=== PATIENT | female | born 1950 | race Caucasian/White ===

== ENCOUNTER 2016-11-20 15:27 | Emergency (ER) | payer OTHER ==
[~2016-11-20] VITALS: Ht 162.6 cm; Wt 77.3 kg
[2016-11-20 15:37] VITALS: BP 196/95; PULSE 96; RESP 25; O2SAT 97
--- NOTE | 2016-11-20 16:23 | ED.REPORT ---
HPI-Dyspnea / Wheezing Date of Service November 20, 2016 ED Provider: Dr. Dada Cabrera M.D. A 66 year old female with a history of hypertension and recently diagnosed asthmatic bronchitis presents to the ED via EMS from Urgent Care with wheezing onset three weeks ago. Associated symptoms include cough and shortness of breath. The patient denies fever or other symptoms. Approximately five weeks ago the patient was placed on antibiotics for pneumonia, which relieved her symptoms for approximately a week. One month ago the patient was placed on Prednisone, but did not finish the prescription. Five days ago she began taking this medication again, once daily. EMS found the patient with a BP of 206/102 and an O2 sat of 90%. Nursing Notes Stated Complaint: SOB Chief Complaint: Respiratory Distress Nursing Notes Reviewed: Yes Allergies: Coded Allergies: codeine (Unverified Allergy, Mild, "real bad stomach pain", 11/20/16) oxycodone (Unverified Allergy, Mild, itching, 11/20/16) General Time Seen by MD: 16:23 Chief Complaint Wheezing Hx Obtained From: Patient Arrived By: Walk-in Sudden in Onset?: No Onset Occurred: More than a week ago... (3 weeks) Symptom Duration: Since onset Location: : None Severity: Current: No pain currently Severity: Maximum: No pain Pertinent Negative: Relieved by nothing Context Related History: Reports: Pneumonia Recent Healthcare: Recent doctor visit Similar Sx Previous: Yes Risk Factors Well's Criteria for PE Well's PE Score: 0-2 pts (low risk 3.6%) Past Medical History Past Medical History Hypertension Asthmatic bronchitis Past Surgical History None reported Smoking History Never Smoker Ambulatory Status Independent Review of Systems Constitutional: Denies: Fever Respiratory: Reports: Non-productive cough, Shortness of breath, Wheezing Complete sys rev & neg: except as marked. GI: Denies: Diarrhea, Vomiting Physical Exam Initial Vital Signs Vital Signs (First) Date Time Temp Pulse Resp B/P Pulse Ox O2 Delivery O2 Flow Rate FiO2 11/20/16 15:37 36.8 96 25 196/95 97 Nasal Cannula 4 Initial VS: Reviewed Head / Eyes: Atraumatic, Normocephalic ENT: Conjunctiva normal, No scleral icterus Skin: Warm, Dry, No cyanosis Neurologic: Alert, Oriented, Nonfocal Psychiatric: Mood/affect normal, Behavior normal, Normal thought content General/Constitutional: Awake, Alert Neck: Supple, Full range of motion Respiratory / Chest: Breath sounds = bilat Wheezing / Retractions: Positive: Wheezing expiratory (Diffuse) Tachypneic Cardiovascular: Heart rate NL, Regular rhythm, Heart sounds NL Lower Extremity / Pelvis / MS: Inspection NL, No edema Interpretation & Diagnostics Lab Results Interpretation Result Diagram: 11/20/16 1649 11/20/16 1649 Test 11/20/16 16:49 11/20/16 16:54 White Blood Count 11.1th/mm3 (3.8-10.1) Red Blood Count 5.20mil/mm3 (3.90-5.20) Hemoglobin 14.9g/dL (12.0-15.6) Hematocrit 44.4% (35.0-46.0) Mean Corpuscular Volume 85.4fL (81-100) Mean Corpuscular Hemoglobin 28.7pg (27.0-35.0) Mean Corpuscular Hemoglobin Concent 33.6% (32.0-37.0) Red Cell Distribution Width 14.6% (12.3-15.4) Platelet Count 254bil/L (150-400) Neutrophils (%) (Auto) 69.5% (40-74) Lymphocytes (%) (Auto) 23.5% (14-46) Monocytes (%) (Auto) 4.8% (4-12) Eosinophils (%) (Auto) 1.5% (0-5) Basophils (%) (Auto) 0.3% (0-3) D-Dimer < 0.50mg/L FEU (<0.50) Sodium Level 135mEq/L (134-144) Potassium Level 4.1mEq/L (3.5-5.2) Chloride Level 94mEq/L (97-108) Carbon Dioxide Level 21mmol/L (18-29) Blood Urea Nitrogen 9mg/dL (8-27) Creatinine 0.55mg/dL (0.57-1.00) Estimat Glomerular Filtration Rate 159mL/min (>59) Glucose Level 177mg/dL (60-99) Calcium Level 9.6mg/dL (8.5-10.1) Total Bilirubin 0.6mg/dL (0.0-1.2) Aspartate Amino Transf (AST/SGOT) 66U/L (0-50) Alanine Aminotransferase (ALT/SGPT) 88U/L (0-32) Alkaline Phosphatase 77U/L (25-165) Troponin T < 0.010ug/L (0.0-0.011) Pro-B-Type Natriuretic Peptide 187.0pg/mL (0-287) Total Protein 7.6g/dL (6.4-8.4) Albumin 4.3g/dL (3.4-5.0) Hold Urine Received (Received) ECG Interpretation ECG Interpretation: Sinus rhythm rate 87 Time: 16:54 Interpreted by: ED physician Re-Eval/Medical Decision Med Decision/Clinical Course I do not believe pulmonary embolism as the cause for her symptoms. She has persistent wheezing throughout. Her room air oxygen saturation is persistently 93-94%. She is mildly tachypnea. Workup is otherwise negative here. She has had other workup over the past few weeks as well which has been nonrevealing. I will refill her albuterol and put her on pulse dose of prednisone 60 mg daily for 5 days. I recommend follow up with pulmonology or allergy as soon as possible. I made an attempt to contact residency clinic but that does not appear to be somewhat on-call for them right now. I recommend the patient call for an appointment tomorrow with residency clinic if she is not having any luck doing this. I recommended she call me back Friday to assist. I also called and refill prescription for her albuterol. Re-Evaluation/Progress #1: Time of Eval: 17:46 Patient Status: Condition unchanged Re-Evaluation/Progress Note: Patient is still diffusely wheezy but has good air movement. Re-Evaluation/Progress #2: Time of Eval: 17:58 Patient Status: Condition improved Re-Evaluation/Progress Note: Discussed with patient lab and ECG results, diagnosis, and plan for discharge. Follow-up and return to the ER instructions given. Patient agrees with plan for care and all questions were addressed. Counseled Regarding: Diagnosis, Lab results, Need for follow-up, When/why to return to ED Discharge & Departure Impression: Primary Impression: Reactive airway disease Asthma severity: unspecified severity Asthma complication type: with acute exacerbation Qualified Code: J45.901 - Unspecified asthma with (acute) exacerbation Disposition: Home Discharge Condition All VS Reviewed: Yes Condition: Improved Patient Instructions: Asthma (GEN) Additional Instructions: It is not clear to me whether you have traditional asthma or some other lung condition. Fortunately you seemed to respond to traditional asthma treatments. I recommended albuterol 2-4 inhalations every 4 hours as needed. I also recommended prednisone 60 mg daily for the next 5 days then stop. You should expect a phone call from the residency clinic regarding follow-up during the day tomorrow. If you do not hear from them, feel free to call me back at the emergency department Friday after 9 AM and I will be willing to help you further. Referrals: Yuri Gallagher Attestation Portions of this note were transcribed by Susan Izquierdo. I, Dr. Cabrera, personally performed the history, physical exam, and medical decision-making; I reviewed and confirmed the accuracy of the information in the transcribed note. Signed by: Waqar Prabhakar, 11/20/2016, 18:20 copies to: Yuri Gallagher Kirk H MD November 20, 2016 16:23 SUSAN IZQUIERDO November 20, 2016 16:31
[2016-11-20] MEDS ORDERED: predniSONE 20 mg Tablet PO ONE (16:40)
[2016-11-20] MEDS ORDERED: Albuterol-Ipratropium 3 mL Inhalation Solution NEB ONE (16:40)
[2016-11-20] MEDS ORDERED: Albuterol 2.5 mg/3 mL Inhalation Solution NEB ONE (16:40)
[2016-11-20 16:53] LABS: BASOPHILS % (AUTO) 0.3 % (0-3); EOSINOPHILS % (AUTO) 1.5 % (0-5); MONOCYTES % (AUTO) 4.8 % (4-12); Mean Corpuscular Hemoglobin 28.7 pg (27.0-35.0); Mean Corpuscular Volume 85.4 fL (81-100); NEUTROPHILS % (AUTO) 69.5 % (40-74); Platelet Count 254 bil/L (150-400)
[2016-11-20 16:56] VITALS: BP 153/80; PULSE 89; RESP 18; O2SAT 91
[2016-11-20 17:36] LABS: TROPONIN T < 0.010 ug/L (0.0-0.011)
[2016-11-20 18:19] VITALS: PULSE 84; RESP 20; O2SAT 92
[2016-11-20] MEDS ORDERED: ALBU8.5H2 INHALATION (18:26)
[2016-11-20] MEDS ORDERED: PRE20 PO (18:26)
[2016-11-20 18:28] VITALS: BP 126/74; PULSE 108; RESP 26; O2SAT 91
[2016-11-20 18:39] VITALS: BP 126/74; PULSE 108; RESP 26; O2SAT 91
== END 2016-11-20 18:49 | disposition home or self-care (01) ==
LOC: SED 15:27 → EDUNIT# 15:27 → EDBD 15:27 → SED 18:49
DX: J45.901 Unspecified asthma with (acute) exacerbation (principal); I10 Essential (primary) hypertension; Z88.5 Allergy status to narcotic agent